=== PATIENT | female | born 2000 | race Caucasian/White ===

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

== ENCOUNTER 2021-05-11 14:25 | Inpatient (IN) | payer OTHER ==
[~2021-05-11] VITALS: Ht 165.1 cm; Wt 77.3 kg
[~2021-05-11 14:25] MED LIST changes: -ALBU8.5H INH; -AZIT-12 PO; -DEPO150I12 IM; -FREM225A INJ; -IBUP80TA PO; -PRED20TA PO
[2021-05-11] MEDS ORDERED: ALBU8.5H INH (14:36)
[2021-05-11] MEDS ORDERED: PRED20TA PO (14:36)
[2021-05-11] MEDS ORDERED: AZIT-12 PO (14:36)
[2021-05-11] MEDS ORDERED: DEPO150I12 IM (14:38)
[2021-05-11 15:07] LABS: BASO % 0.1 % (0.0-1.0); EOS # 0.1 10^3/uL (0.0-0.5); EOS % 0.4 % (0.0-3.0); HEMATOCRIT 39.3 % (36.0-47.0); HEMOGLOBIN 13.4 g/dl (12.0-15.5); LYMPH # 0.4 10^3/uL (1.5-5.0); MEAN CORPUSCULAR HEMOGLOBIN 29.8 pg (27.0-33.0); MEAN CORPUSCULAR HGB CONC 34.1 g/dl (32.0-36.5); MEAN CORPUSCULAR VOLUME 87.3 fl (80.0-96.0); MONO # 0.2 10^3/uL (0.0-0.8); MONO % 1.1 % (2.0-8.0); NEUTROPHILS # 13.5 10^3/uL (1.5-8.5); NEUTROPHILS % 94.6 % (36.0-66.0); PLATELET COUNT, AUTOMATED 286 10^3/uL (150-450); WHITE BLOOD COUNT 14.3 10^3/uL (4.0-10.0)
[2021-05-11] MEDS ORDERED: ISOVUE-370 76% 100ML VIAL As Ordered ONE (19:04)
[2021-05-11] MEDS ORDERED: NS 1,000 ML IV ONE (19:05)
--- NOTE | 2021-05-11 20:06 | REPVR ---
PROCEDURE INFORMATION: Exam: CTA Chest With Contrast Exam date and time: 05/11/2021 7:09 PM Age: 20 years old Clinical indication: Other: SOB RO pe TECHNIQUE: Imaging protocol: Computed tomographic angiography of the chest with contrast. 3D rendering (Not supervised by radiologist): MIP and/or 3D reconstructed images were created by the technologist. Radiation optimization: All CT scans at this facility use at least one of these dose optimization techniques: automated exposure control; mA and/or kV adjustment per patient size (includes targeted exams where dose is matched to clinical indication); or iterative reconstruction. Contrast material: ISOVUE 370; Contrast volume: 75 ml; Contrast route: INTRAVENOUS (IV); COMPARISON: IL Chest, 2 view PA, Lat 05/11/2021 11:58 AM FINDINGS: Pulmonary arteries: There are no pulmonary emboli. Aorta: There is no aortic dissection or aneurysm. Lungs: Multiple bilateral ground-glass and semi solid pulmonary parenchymal opacities most consistent with bilateral moderate to severe multifocal pneumonitis. Pleural spaces: Unremarkable. No pneumothorax. No pleural effusion. Heart: Unremarkable. No cardiomegaly. No pericardial effusion. Lymph nodes: Diffuse mediastinal lymphadenopathy likely postinflammatory. Bones/joints: Unremarkable. No acute fracture. Soft tissues: Unremarkable. IMPRESSION: 1. Multiple bilateral ground-glass and semi solid pulmonary parenchymal opacities most consistent with bilateral moderate to severe multifocal pneumonitis. 2. There is no aortic dissection or aneurysm. 3. Diffuse mediastinal lymphadenopathy likely postinflammatory. 4. There are no pulmonary emboli. Electronically signed by: Александр Whiting On 05/11/2021 20:05:43 PM
[2021-05-11 20:41] VITALS: O2SAT 91
[2021-05-11] MEDS ORDERED: cefTRIAXone SOD 2 GM in D5W MINI-BAG PLUS 50 ML IV ONE (20:45)
[2021-05-11] MEDS ORDERED: FREM225A INJ (20:47)
[2021-05-11] MEDS ORDERED: IBUP80TA PO (20:47)
[2021-05-11 20:51] LABS: BLOOD UREA NITROGEN 6 MG/DL (7-18); CALCIUM LEVEL 8.5 MG/DL (8.5-10.1); CARBON DIOXIDE LEVEL 21 MEQ/L (21-32); CHLORIDE LEVEL 110 MEQ/L (98-107); CREATININE FOR GFR 0.48 MG/DL (0.55-1.30); GLUCOSE, FASTING 112 MG/DL (70-100); POTASSIUM SERUM 3.1 MEQ/L (3.5-5.1); SODIUM LEVEL 141 MEQ/L (136-145)
[2021-05-11] MEDS ORDERED: POTASSIUM CHLORIDE 10 MEQ SR TABLET PO ONE (21:00)
[2021-05-11] MEDS ORDERED: LEVALBUTEROL 1.25 MG/0.5 ML CONCENTRATE NEB INH PRN (21:05)
--- NOTE | 2021-05-11 21:13 | HPEPDOC ---
[facility] Medical History & Physical Date of Admission May 11, 2021 Date of Service: May 11, 2021 History and Physical Hospitalist Attending Physician Addendum to H&P: a/p: 20 y/o F w c/o sob, cough found to have B/L infiltrates on CT chest, negative coronavirus-19 on respiratory panel, white count 14, tachycardic 122, hypoxic admitted as an inpatient for 2midnights for the following acute issues: Sepsis Bilateral Community Acquired Pneumonia -monitor w serial inflammatory markers, and recheck coronavirus if high suspic ion despite negative respiratory panel on admission -7days abx: start with iv ceftriaxone 2grams daily and iv doxycycline -check sputum c&s, mrsa screen, urine legionella and strep pneumonia ag, 2 sets blood cultures -prn xopenex neb q1hr, qid scheduled nebs -supplemental oxygen to keep o2 sat>90% Acute hypoxic respiratory failure due to pneumonia Vital Signs Vital Signs Date Time Temp Pulse Resp B/P (MAP) Pulse Ox O2 Delivery O2 Flow Rate FiO2 05/11/21 20:41 91 Room Air 05/11/21 19:21 05/11/21 14:26 98.3 122 18 Laboratory Data Labs 24H Laboratory Tests 2 05/11/21 14:41: Immature Granulocyte % (Auto) 0.8, Neutrophils (%) (Auto) 94.6H, Lymphocytes (%) (Auto) 3.0L, Monocytes (%) (Auto) 1.1L, Eosinophils (%) (Auto) 0.4, Basophils (%) (Auto) 0.1, Neutrophils # (Auto) 13.5H, Lymphocytes # (Auto) 0.4L, Monocytes # (Auto) 0.2, Eosinophils # (Auto) 0.1, Basophils # (Auto) 0.0, Nucleated Red Blood Cells % (auto) 0.0, Human Chorionic Gonadotropin, Quant < 1.0 05/11/21 18:15: D-Dimer, Quantitative 1134.10H 05/11/21 18:58: POC Glucose (Misc Panel) 115H, POC Sodium (Misc Panel) 139, POC Potassium (Misc Panel) 3.0L, POC Chloride (Misc Panel) 102, POC Total CO2 (Misc Panel) 21.0L, POC Blood Urea Nitrogen (Misc Panel 6L, POC Ionized Calcium (Misc Panel) 4.4L, POC Creatinine (Misc Panel) 0.3L, POC Hematocrit (Misc Panel) 39.0 05/11/21 20:19: Anion Gap 10, Calcium Level 8.5 CBC/BMP Laboratory Tests 05/11/21 14:41 05/11/21 20:19 Microbiology Microbiology 05/11/21 Respiratory Virus Panel (PCR) (CEDRICK) - Final, Complete Home Medications Scheduled Azithromycin (Azithromycin) 250 Mg Tablet, 250 MG PO DAILY STARTED 05/11/21 FOR 5 DAYS Fremanezumab-Vfrm (Ajovy Autoinjector) 225 Mg/1.5 Ml Auto.injct, 225 MG INJ QMONTH Ibuprofen (Ibuprofen) 800 Mg Tablet, 800 MG PO TID Medroxyprogesterone Acetate (Depo-Provera) 150 Mg/1 Ml Syringe, 150 MG IM Q3M Prednisone (Prednisone) 20 Mg Tablet, 20 MG PO DAILY STARTED 05/11/21 FOR 3 DAYS Scheduled PRN Albuterol Sulfate (Albuterol Sulfate Hfa) 8.5 Gm Hfa.aer.ad, 2 PUFFS INH QID PRN for SHORTNESS OF BREATH Allergies Coded Allergies: azithromycin (Verified Allergy, Mild, HIVES, 05/11/21) A-FIB/CHADSVASC A-FIB History Current/History of A-Fib/PAF?: No Current PO Anticoag Therapy: No Age/Risk Factor Scoring CHADSVASC: CHADSVASC Response (Comments) Value Age Risk Factor Age < 65 years old 0 Gender Risk Factor Female 1 Hx of CHF No 0 Hx of HTN No 0 Hx of Stroke/TIA/or VTE No 0 Hx of Diabetes No 0 Hx of Vascular Disease No 0 Total 1 Treatment Treatment ordered: NONE SEDRICK BRADFORD MD May 11, 2021 21:13
[2021-05-11] MEDS ORDERED: ACETAMINOPHEN TAB 650MG DOSE (2X325MG) PO PRN (21:15)
[2021-05-11] MEDS ORDERED: ONDANSETRON 4MG/2ML VIAL IV PRN (21:15)
[2021-05-11] MEDS ORDERED: ENOXAPARIN 40MG/0.4ML SYRINGE (J1650 PER 10MG) SC ONE (21:15)
--- NOTE | 2021-05-11 22:34 | HPEPDOC ---
[facility] Medical History & Physical Date of Admission May 11, 2021 Date of Service: May 11, 2021 History and Physical CHIEF COMPLAINT: Fever cough shortness of breath HISTORY OF PRESENT ILLNESS: 20-year-old female presented to the emergency room due to complaints of fever 103 since Monday on and off seen at [facility] urgent care and diagnosed with sinus infection and ear infection given azithromycin. Patient had persistent cough which is dry nonproductive without nausea vomiting diarrhea abdominal pain but complained of headache and presents with shortness of breath for the past 1 day prompting her to come into the ER. Patient was taking Tylenol twice a day with no improvement in symptoms she was exposed to her mom who also was treated for sinus infection for the past 2 weeks and started having a cough. Jerri navirus was negative. White count was 14 with tachycardia sinus rhythm ventricle rate of 122. 91% on room air. Patient is admitted for sepsis secondary to bilateral community-acquired pneumonia . PAST MEDICAL HISTORY: Otitis media PAST SURGICAL HISTORY: None SOCIAL HISTORY: Works at [employer] denies any recreational drug use alcohol abuse or cigarette abuse FAMILY HISTORY: Mother father alive and well in their 40s no chronic medical problems ALLERGIES: Please see below. REVIEW OF SYSTEMS: 10 point review of systems negative aside from positive findings in HPI HOME MEDICATIONS: Please see below. PHYSICAL EXAMINATION: VITAL SIGNS: See below GENERAL APPEARANCE: No conversational dyspnea no pallor icterus jaundice no respiratory distress or use of respiratory accessory muscles HEENT: Face is symmetric tongue is midline pupils equally round reactive to lig ht accommodation extra muscles are intact normocephalic atraumatic no cervical lymphadenopathy thyromegaly or pharyngeal erythema no stridor in exam no carotid bruit CARDIOVASCULAR: S1-S2 sinus tachycardia no murmurs rubs or gallops LUNGS: No kyphoscoliosis air entry is equal bilaterally bilateral crackles no wheezing ABDOMEN: Positive bowel sounds soft nontender nondistended no rebound or guardin g EXTREMITIES: No cyanosis clubbing or pitting edema. LABORATORY DATA: See below. IMAGING: CT chest bilateral groundglass infiltrates severe pneumonitis MICROBIOLOGY: Please see below. ASSESSMENT: 20-year-old female presents with fever shortness of breath dry cough found to have bilateral groundglass opacities on CT chest admitted for community-acquired pneumonia. Sepsis secondary to bilateral community-acquired pneumonia -Patient will be admitted as an inpatient for 2 midnights and treated with IV ceftriaxone 2 g every 24 hours, doxycycline 100 mg IV every 12 hours, nebulizer Xopenex 4 times daily routine and nightly hourly as needed for wheezing and shortness of breath supplemental oxygen if needed for O2 sat less than 88% to keep saturation at greater than 90% at rest and with ambulation -Check sputum culture 2 sets of blood cultures check for urine Legionella antigen urine streptococcal antigen check for MRSA screen -Monitor inflammatory markers Diet regular diet DVT prophylaxis Lovenox 40 mg subcu daily CODE STATUS full code Disposition: 1 to 2 days depending on clinical improvement. Vital Signs Vital Signs Date Time Temp Pulse Resp B/P (MAP) Pulse Ox O2 Delivery O2 Flow Rate FiO2 05/11/21 21:32 95 18 133/75 (94) 97 05/11/21 20:41 Room Air 05/11/21 14:26 98.3 Laboratory Data Labs 24H Laboratory Tests 2 05/11/21 14:41: Immature Granulocyte % (Auto) 0.8, Neutrophils (%) (Auto) 94.6H, Lymphocytes (%) (Auto) 3.0L, Monocytes (%) (Auto) 1.1L, Eosinophils (%) (Auto) 0.4, Basophils (%) (Auto) 0.1, Neutrophils # (Auto) 13.5H, Lymphocytes # (Auto) 0.4L, Monocytes # (Auto) 0.2, Eosinophils # (Auto) 0.1, Basophils # (Auto) 0.0, Nucleated Red Blood Cells % (auto) 0.0, Human Chorionic Gonadotropin, Quant < 1.0 05/11/21 18:15: D-Dimer, Quantitative 1134.10H 05/11/21 18:58: POC Glucose (Misc Panel) 115H, POC Sodium (Misc Panel) 139, POC Potassium (Misc Panel) 3.0L, POC Chloride (Misc Panel) 102, POC Total CO2 (Misc Panel) 21.0L, POC Blood Urea Nitrogen (Misc Panel 6L, POC Ionized Calcium (Misc Panel) 4.4L, POC Creatinine (Misc Panel) 0.3L, POC Hematocrit (Misc Panel) 39.0 05/11/21 20:19: Anion Gap 10, Calcium Level 8.5 CBC/BMP Laboratory Tests 05/11/21 14:41 05/11/21 20:19 Microbiology Microbiology 05/11/21 Respiratory Virus Panel (PCR) (CEDRICK) - Final, Complete Home Medications Scheduled Azithromycin (Azithromycin) 250 Mg Tablet, 250 MG PO DAILY STARTED 05/11/21 FOR 5 DAYS Fremanezumab-Vfrm (Ajovy Autoinjector) 225 Mg/1.5 Ml Auto.injct, 225 MG INJ QMONTH Ibuprofen (Ibuprofen) 800 Mg Tablet, 800 MG PO TID Medroxyprogesterone Acetate (Depo-Provera) 150 Mg/1 Ml Syringe, 150 MG IM Q3M Prednisone (Prednisone) 20 Mg Tablet, 20 MG PO DAILY STARTED 05/11/21 FOR 3 DAYS Scheduled PRN Albuterol Sulfate (Albuterol Sulfate Hfa) 8.5 Gm Hfa.aer.ad, 2 PUFFS INH QID PRN for SHORTNESS OF BREATH Allergies Coded Allergies: azithromycin (Verified Allergy, Mild, HIVES, 05/11/21) A-FIB/CHADSVASC A-FIB History Current/History of A-Fib/PAF?: No Current PO Anticoag Therapy: No Age/Risk Factor Scoring CHADSVASC: CHADSVASC Response (Comments) Value Age Risk Factor Age < 65 years old 0 Gender Risk Factor Female 1 Hx of CHF No 0 Hx of HTN No 0 Hx of Stroke/TIA/or VTE No 0 Hx of Diabetes No 0 Hx of Vascular Disease No 0 Total 1 Treatment Treatment ordered: NONE SEDRICK BRADFORD MD May 11, 2021 22:34
[2021-05-11 23:00] LABS: INR 1.23; PARTIAL THROMBOPLASTIN TIME 34.3 SECONDS (24.2-38.5); PROTHROMBIN TIME 15.8 SECONDS (12.5-14.3)
[2021-05-12 00:01] LABS: ALBUMIN 3.1 GM/DL (3.2-5.2); ALT/SGPT 18 U/L (12-78); BILIRUBIN,DIRECT 0.2 MG/DL (0.0-0.2); BILIRUBIN,TOTAL 0.4 MG/DL (0.2-1.0); CK-MB VALUE MASS < 1.0 NG/ML (<3.6); CPK CREATINE PHOSPHOKINASE 77 U/L (26-192); FERRITIN 301 NG/ML (8-252); LDH LACTATE DEHYDROGENASE 486 U/L (84-246); MAGNESIUM LEVEL 2.4 MG/DL (1.8-2.4); TOTAL PROTEIN 6.6 GM/DL (6.4-8.2); TROPONIN I < 0.02 NG/ML (< 0.10)
[2021-05-12 00:30] VITALS: BP 143/85
[2021-05-12] MEDS: DOXYCYCLINE HYCLATE 100 MG in D5W MINI-BAG PLUS 100 ML IV SCH ×3 (00:46→20:36)
[2021-05-12] MEDS ORDERED: BENZONATATE 100 MG CAP PO PRN (01:30)
--- NOTE | 2021-05-12 05:27 | ECGEPIP ---
[facility] - ED Test Date: 2021-05-11 Pat Name: TRINA FAIRCHILD Department: Room: - Gender: Female Cable Technician: : 2000 Requested By: JON Cardenas PA-C Order Number: [id number] Reading MD: Jhon Chang Measurements Intervals [place] Rate: 83 P: 25 [place]: 144 QRS: 71 QRSD: 84 T: 43 QT: 362 QTc: 425 Interpretive Statements Normal sinus rhythm SIMILAR TO 07/02/19 Electronically Signed on 05-12-2021 5:26:56 EDT by Jhon Chang
[2021-05-12 06:00] VITALS: BP 135/81
[2021-05-12 06:57] LABS: BASO % 0.1 % (0.0-1.0); EOS # 0.1 10^3/uL (0.0-0.5); EOS % 0.7 % (0.0-3.0); HEMATOCRIT 33.6 % (36.0-47.0); LYMPH # 1.7 10^3/uL (1.5-5.0); LYMPH % 11.7 % (24.0-44.0); MEAN CORPUSCULAR HEMOGLOBIN 29.8 pg (27.0-33.0); MEAN CORPUSCULAR HGB CONC 33.9 g/dl (32.0-36.5); MEAN CORPUSCULAR VOLUME 87.7 fl (80.0-96.0); MONO # 0.4 10^3/uL (0.0-0.8); MONO % 3.1 % (2.0-8.0); NEUTROPHILS # 11.9 10^3/uL (1.5-8.5); NEUTROPHILS % 83.8 % (36.0-66.0); PLATELET COUNT, AUTOMATED 289 10^3/uL (150-450); RED BLOOD COUNT 3.83 10^6/uL (4.00-5.40); WHITE BLOOD COUNT 14.2 10^3/uL (4.0-10.0)
[2021-05-12 06:58] LABS: HEMOGLOBIN 11.4 g/dl (12.0-15.5)
[2021-05-12] MEDS: LEVALBUTEROL 1.25 MG/0.5 ML CONCENTRATE NEB INH SCH ×4 (07:04→19:11)
[2021-05-12 07:06] LABS: BLOOD UREA NITROGEN 6 MG/DL (7-18); CALCIUM LEVEL 8.6 MG/DL (8.5-10.1); CARBON DIOXIDE LEVEL 23 MEQ/L (21-32); CHLORIDE LEVEL 108 MEQ/L (98-107); CREATININE FOR GFR 0.41 MG/DL (0.55-1.30); GLUCOSE, FASTING 94 MG/DL (70-100); POTASSIUM SERUM 3.2 MEQ/L (3.5-5.1); SODIUM LEVEL 141 MEQ/L (136-145)
[2021-05-12] MEDS: ENOXAPARIN 40MG/0.4ML SYRINGE (J1650 PER 10MG) SC SCH (09:00)
[2021-05-12] MEDS ORDERED: POTASSIUM CHLORIDE 10 MEQ SR TABLET PO ONE (10:30)
[2021-05-12 14:00] VITALS: BP 142/87
--- NOTE | 2021-05-12 19:22 | IPNPDOC ---
Text Note Date of Service The patient was seen on 05/12/21. NOTE Subjective: -No acute events overnight Objective: Vitals: see below GENERAL APPEARANCE: NAD HEENT: NCAT, EOMI, PERRLA, anicteric, MMM CARDIOVASCULAR: Regular rhythm, tachycardic, no murmurs LUNGS: No crackles, moving air well, no wheezing, breathing comfortably otherwise without conversation dyspnea ABDOMEN: Normoactive bowel sounds soft nontender nondistended no rebound or guarding EXTREMITIES: No cyanosis clubbing or pitting edema. LABORATORY DATA: Reviewed IMAGING: CT chest bilateral groundglass infiltrates severe pneumonitis MICROBIOLOGY: Please see below. ASSESSMENT: 20-year-old W who presented with fever, shortness of breath and dry cough found to have bilateral ground glass opacities on CT chest admitted for community-acquired pneumonia. Sepsis secondary to bilateral community-acquired pneumonia -Continue ceftriaxone 2 g every 24 hours, doxycycline 100 mg IV every 12 hours -continue Xopenex PRN for wheezing and shortness of breath -supplemental oxygen if needed for O2 sat less than 88% to keep saturation at greater than 90% at rest and with ambulation -f/u sputum culture, blood cultures, urine Legionella antigen, urine streptococcal antigen, mycoplasma IgM -was negative for covid x 2 Diet regular diet DVT prophylaxis Lovenox 40 mg subcutaneous daily CODE STATUS full code VS,Fishbone, I+O VS, Fishbone, I+O Laboratory Tests 05/11/21 14:41 05/11/21 20:19 05/12/21 06:19 Vital Signs Date Time Temp Pulse Resp B/P (MAP) Pulse Ox O2 Delivery O2 Flow Rate FiO2 05/12/21 06:00 99.2 111 21 135/81 (99) 94 Room Air I&O- Last 24 Hours up to 6 AM 05/12/21 06:00 Intake Total 1350 ml Balance 1350 ml STELLA LEVY MD May 12, 2021 10:27
[2021-05-12 20:34] VITALS: BP 107/75
[2021-05-13 06:00] VITALS: BP 108/75
[2021-05-13] MEDS: LEVALBUTEROL 1.25 MG/0.5 ML CONCENTRATE NEB INH SCH ×2 (06:06→10:58)
[2021-05-13 07:38] LABS: BASO % 0.3 % (0.0-1.0); EOS # 0.3 10^3/uL (0.0-0.5); EOS % 3.5 % (0.0-3.0); HEMATOCRIT 33.5 % (36.0-47.0); HEMOGLOBIN 11.3 g/dl (12.0-15.5); LYMPH # 1.9 10^3/uL (1.5-5.0); LYMPH % 19.6 % (24.0-44.0); MEAN CORPUSCULAR HEMOGLOBIN 29.6 pg (27.0-33.0); MEAN CORPUSCULAR HGB CONC 33.7 g/dl (32.0-36.5); MEAN CORPUSCULAR VOLUME 87.7 fl (80.0-96.0); MONO # 0.4 10^3/uL (0.0-0.8); MONO % 4.3 % (2.0-8.0); NEUTROPHILS # 6.9 10^3/uL (1.5-8.5); NEUTROPHILS % 71.4 % (36.0-66.0); PLATELET COUNT, AUTOMATED 273 10^3/uL (150-450); RED BLOOD COUNT 3.82 10^6/uL (4.00-5.40); WHITE BLOOD COUNT 9.7 10^3/uL (4.0-10.0)
[2021-05-13 08:12] LABS: BLOOD UREA NITROGEN 7 MG/DL (7-18); CALCIUM LEVEL 8.6 MG/DL (8.5-10.1); CARBON DIOXIDE LEVEL 26 MEQ/L (21-32); CHLORIDE LEVEL 107 MEQ/L (98-107); CREATININE FOR GFR 0.38 MG/DL (0.55-1.30); GLUCOSE, FASTING 87 MG/DL (70-100); POTASSIUM SERUM 3.7 MEQ/L (3.5-5.1); SODIUM LEVEL 142 MEQ/L (136-145)
[2021-05-13] MEDS ORDERED: DOXYCYCLINE HYCLATE 100MG TABLET PO SCH (09:00)
[2021-05-13] MEDS: ENOXAPARIN 40MG/0.4ML SYRINGE (J1650 PER 10MG) SC SCH (09:00)
[2021-05-13] MEDS ORDERED: CEFDINIR 300 MG CAP (OMNICEF) PO SCH (09:00)
[2021-05-13] MEDS ORDERED: DOXY100T PO (12:00)
[2021-05-13] MEDS ORDERED: BENZ-18 PO (12:00)
[2021-05-13] MEDS ORDERED: CEFD300CAP PO (12:00)
--- NOTE | 2021-05-13 12:12 | DS.PDOC ---
Discharge Summary General Date of Admission May 11, 2021 at 14:26 Date of Discharge 05/13/2021 Attending Physician: STELLA LEVY MD Discharge Summary PROCEDURES PERFORMED DURING STAY: None ADMITTING DIAGNOSES: CAP DISCHARGE DIAGNOSES: CAP COMPLICATIONS/CHIEF COMPLAINT: Bilateral Pneumonia. HISTORY OF PRESENT ILLNESS: 20-year-old previously healthy W who presented to the emergency room due to complaints of episodic fever with Tmax of 103for a few days and was seen at urgent care clinic and diagnosed with sinus infection and ear infection and given azithromycin that did not help and instead developed a dry cough, headache and then presented with ED after developing shortness of breath for 1 day. Of note, she had tested negative for covid at the urgent care clinic. HOSPITAL COURSE: She was HDS, febrile, covid-19 was negative, while count was 14 with sinus t achycardia, elevated inflammatory markers and CTA showed bilateral GGOs without evidence of PE. She was admitted for CAP and started on ceftriaxone/doxy IV. Her fever resolved, symptoms improved and urine legionella and strep antigens sent. She feels so much better and has not been transitioned to PO cefdinir/doxy for a total 10 day course and is now being discharged home with close PCP follow up for most likely legionnaire's PNA. DISCHARGE MEDICATIONS: Please see below. ALLERGIES: Please see below. PHYSICAL EXAMINATION ON DISCHARGE: VITAL SIGNS: Please see below. GENERAL APPEARANCE: NAD HEENT: NCAT, EOMI, PERRLA, anicteric, MMM CARDIOVASCULAR: Regular rhythm, tachycardic, no murmurs LUNGS: No crackles, moving air well, no wheezing, breathing comfortably otherwise without conversation dyspnea ABDOMEN: Normoactive bowel sounds soft nontender nondistended no rebound or guarding EXTREMITIES: No cyanosis clubbing or pitting edema. LABORATORY DATA: Please see below. IMAGING: CTA chest: Chest bilateral ground glass infiltrates c/w severe pneumonitis vs. PNA PROGNOSIS: Excelllent ACTIVITY: As tolerated DIET: regular DISCHARGE PLAN: Home with 8 more day for total 10d course with cefdinir/doxy and close PCP follow up. DISPOSITION: Home DISCHARGE INSTRUCTIONS: Home with 8 more day for total 10d course with cefdinir/doxy and close PCP follow up. ITEMS TO FOLLOWUP ON ON OUTPATIENT: CAP DISCHARGE CONDITION: Stable TIME SPENT ON DISCHARGE: 34 minutes. Vital Signs/I&Os Vital Signs Date Time Temp Pulse Resp B/P (MAP) Pulse Ox O2 Delivery O2 Flow Rate FiO2 05/13/21 06:00 99.0 97 21 108/75 (86) 96 Room Air I&O- Last 24 Hours up to 6 AM 05/13/21 06:00 Intake Total 440 ml Balance 440 ml Laboratory Data Labs 24H Laboratory Tests 2 05/13/21 07:28: Immature Granulocyte % (Auto) 0.9, Neutrophils (%) (Auto) 71.4H, Lymphocytes (%) (Auto) 19.6L, Monocytes (%) (Auto) 4.3, Eosinophils (%) (Auto) 3.5H, Basophils (%) (Auto) 0.3, Neutrophils # (Auto) 6.9, Lymphocytes # (Auto) 1.9, Monocytes # (Auto) 0.4, Eosinophils # (Auto) 0.3, Basophils # (Auto) 0.0, Nucleated Red Blood Cells % (auto) 0.0, Anion Gap 9, Calcium Level 8.6 CBC/BMP Laboratory Tests 05/13/21 07:28 Microbiology Microbiology 05/11/21 Blood Culture - Preliminary, Resulted No growth after 24 hours . All specim... 05/11/21 Blood Culture - Preliminary, Resulted No growth after 24 hours . All specim... 05/11/21 Respiratory Virus Panel (PCR) ([facility]) - Final, Complete Discharge Medications Scheduled Azithromycin (Azithromycin) 250 Mg Tablet, 250 MG PO DAILY, (Reported) STARTED 05/11/21 FOR 5 DAYS Cefdinir (Cefdinir) 300 Mg Capsule, 300 MG PO BID Doxycycline Hyclate (Doxycycline Hyclate) 100 Mg Tablet, 100 MG PO BID Fremanezumab-Vfrm (Ajovy Autoinjector) 225 Mg/1.5 Ml Auto.injct, 225 MG INJ QMONTH, (Reported) Ibuprofen (Ibuprofen) 800 Mg Tablet, 800 MG PO TID, (Reported) Medroxyprogesterone Acetate (Depo-Provera) 150 Mg/1 Ml Syringe, 150 MG IM Q3M, (Reported) Scheduled PRN Albuterol Sulfate (Albuterol Sulfate Hfa) 8.5 Gm Hfa.aer.ad, 2 PUFFS INH QID PRN for SHORTNESS OF BREATH, (Reported) Benzonatate (Benzonatate) 100 Mg Capsule, 100 MG PO TIDP PRN for COUGH Allergies Coded Allergies: azithromycin (Verified Allergy, Mild, HIVES, 05/11/21) STELLA LEVY MD May 13, 2021 12:12
[2021-05-14 15:40] LABS: BODY FLUID CULTURE Not indicated. (.); LEGIONELLA ANTIGEN URINE Negative (Negative); ORGANISM ID Not indicated. (.); SPECIMEN SOURCE Urine (.); URINE STREP PNEUMONIAE ANTIGEN Negative (Negative)
== END 2021-05-13 13:10 | disposition home or self-care (01) | DRG 195 ==
LOC: M ED 14:25 → M ED INP 14:26 → M MS5PR 05-12 00:40
PROVIDERS: ADMIT General Practice; ATTEND Internal Medicine
DX: J18.9 Pneumonia, unspecified organism (principal); Z88.1 Allergy status to other antibiotic agents; Z79.899 Other long term (current) drug therapy; Z20.822 Contact with and (suspected) exposure to COVID-19

== ENCOUNTER → 2021-05-11 | Outpatient (CLI) | payer OTHER ==
[~2021-05-11] MED LIST changes: +ALBU8.5H INH; +AZIT-12 PO; +DEPO150I12 IM; -DICY20TA PO; +DICY20TA3 PO; +FREM225A INJ; +IBUP80TA PO; +PRED20TA PO
--- NOTE | 2021-05-11 12:11 | REP ---
INDICATION: SOB COMPARISON: 07/02/2019. TECHNIQUE: PA/Lateral FINDINGS: Lungs: There are bibasilar interstitial infiltrates predominantly in the right middle lobe and lingula. Heart: Normal in size. Mediastinum: Mediastinal silhouette unremarkable. Pleural angles: Unremarkable.. Bones and soft tissues: Unremarkable. IMPRESSION: Bibasilar interstitial infiltrates predominantly in the right middle lobe and lingula. <Electronically signed by Malcolm Stevenson > 05/11/21 1206
== END ==
LOC: M RAD 11:44
PROVIDERS: ATTEND Physician Assistant Medical
DX: R06.02 Shortness of breath (principal); R05 Cough

== ENCOUNTER → 2021-05-26 | Outpatient (CLI) | payer OTHER ==
[~2021-05-26] MED LIST changes: +ALBU8.5H INH; +AZIT-12 PO; +BENZ-18 PO; +CEFD300CAP PO; +DEPO150I12 IM; +DOXY100T PO; +FREM225A INJ; +IBUP80TA PO; +PRED20TA PO
--- NOTE | 2021-05-26 14:15 | REP ---
INDICATION: PNEUMONIA F/U. COMPARISON: 05/11/2021 FINDINGS: The superior mediastinal structures are midline. The cardiac silhouette is unremarkable in size, shape, and position. The diaphragmatic surfaces of the lungs are regular, and the costophrenic angles are clear. The pulmonary lozoya are clear. The imaged osseous structures are intact. IMPRESSION: There is no acute cardiopulmonary disease. <Electronically signed by Yair Glover > 05/26/21 [id number]
== END ==
LOC: M WUC 11:33
PROVIDERS: ATTEND Physician Assistant Medical
DX: J18.9 Pneumonia, unspecified organism (principal)

== ENCOUNTER → 2021-07-05 | Outpatient (CLI) | payer OTHER ==
--- NOTE | 2021-07-05 14:12 | REP ---
INDICATION: RECENT PNEUMONIA COMPARISON: 05/26/2021. TECHNIQUE: PA/Lateral FINDINGS: Lungs: Clear, no infiltrate. Heart: Normal in size. Mediastinum: Mediastinal silhouette unremarkable. Pleural angles: Unremarkable.. Bones and soft tissues: Unremarkable. IMPRESSION: No acute pulmonary disease. <Electronically signed by Malcolm Stevenson > 07/05/21 [id number]
== END ==
LOC: M RAD 13:53
PROVIDERS: ATTEND Physician Assistant
DX: R05 Cough (principal)

== ENCOUNTER → 2021-08-12 | Outpatient (REF) | payer OTHER | LOC: M LAB REF 21:18 | PROVIDERS: ATTEND Physician Assistant | DX: R05.9 Cough, unspecified (principal) ==

== ENCOUNTER → 2021-08-27 | Outpatient (CLI) | payer OTHER ==
[2021-08-27 14:35] LABS: BASO # 0.1 10^3/uL (0.0-0.2); BASO % 0.6 % (0.0-1.0); EOS # 0.3 10^3/uL (0.0-0.5); EOS % 2.4 % (0.0-3.0); HEMATOCRIT 40.9 % (36.0-47.0); HEMOGLOBIN 13.6 g/dl (12.0-15.5); LYMPH # 1.9 10^3/uL (1.5-5.0); LYMPH % 18.5 % (24.0-44.0); MEAN CORPUSCULAR HEMOGLOBIN 29.8 pg (27.0-33.0); MEAN CORPUSCULAR HGB CONC 33.3 g/dl (32.0-36.5); MEAN CORPUSCULAR VOLUME 89.5 fl (80.0-96.0); MONO # 0.7 10^3/uL (0.0-0.8); MONO % 6.5 % (2.0-8.0); NEUTROPHILS # 7.4 10^3/uL (1.5-8.5); NEUTROPHILS % 71.6 % (36.0-66.0); PLATELET COUNT, AUTOMATED 254 10^3/uL (150-450); RED BLOOD COUNT 4.57 10^6/uL (4.00-5.40); WHITE BLOOD COUNT 10.4 10^3/uL (4.0-10.0)
[2021-08-27 15:16] LABS: ALBUMIN 4.3 GM/DL (3.2-5.2); ALT/SGPT 18 U/L (12-78); BILIRUBIN,TOTAL 0.5 MG/DL (0.2-1.0); BLOOD UREA NITROGEN 14 MG/DL (7-18); CALCIUM LEVEL 9.5 MG/DL (8.5-10.1); CARBON DIOXIDE LEVEL 26 MEQ/L (21-32); CHLORIDE LEVEL 109 MEQ/L (98-107); CREATININE FOR GFR 0.65 MG/DL (0.55-1.30); FERRITIN 84 NG/ML (8-252); FREE T4 1.09 NG/DL (0.76-1.46); GLOMERULAR FILTRATION RATE > 60.0 (>60); GLUCOSE, FASTING 95 MG/DL (70-100); IRON (FE) 91 UG/DL (50-170); PERCENT SATURATION 31.7 % (13.2-45.0); POTASSIUM SERUM 3.3 MEQ/L (3.5-5.1); RHEUMATOID FACTOR QUANT < 10.0 IU/ML (<15.0); SODIUM LEVEL 143 MEQ/L (136-145); TOTAL IRON BINDING CAPACITY 287 UG/DL (250-450); TOTAL PROTEIN 7.1 GM/DL (6.4-8.2)
[2021-08-27 15:19] LABS: VITAMIN B12 LEVEL 328 PG/ML
[2021-08-27 15:20] LABS: FOLATE 9.6 NG/ML
[2021-08-27 15:23] LABS: ERYTHROCYTE SEDIMENTATION RATE 2 mm/hr (0-20)
== END ==
LOC: M PLALAB 12:32
PROVIDERS: ATTEND Psychiatry & Neurology Neurology
DX: R51.9 Headache, unspecified (principal); D50.9 Iron deficiency anemia, unspecified; E07.9 Disorder of thyroid, unspecified; D51.9 Vitamin B12 deficiency anemia, unspecified

== ENCOUNTER → 2021-09-21 | Outpatient (REF) | payer OTHER ==
[~2021-09-21] MED LIST changes: -DICY20TA11; +DICY20TA20
== END ==
LOC: M LAB REF 16:33
PROVIDERS: ATTEND Advanced Practice Midwife
DX: R30.0 Dysuria (principal)

== ENCOUNTER 2022-01-07 15:46 | Emergency (ER) | payer OTHER ==
[~2022-01-07] VITALS: Ht 165.1 cm; Wt 79.5 kg
[2022-01-07 15:48] VITALS: BP 133/80
[2022-01-07] MEDS ORDERED: BUTA-198 PO (16:13)
[2022-01-07] MEDS ORDERED: UBRO100T PO (16:13)
[2022-01-07] MEDS ORDERED: PRED20TA PO (16:13)
[2022-01-07] MEDS ORDERED: KETOROLAC 30 MG/ML 1ML VIAL IV ONE (17:25)
[2022-01-07 18:11] LABS: BASO # 0.1 10^3/uL (0.0-0.2); BASO % 0.8 % (0.0-1.0); HEMATOCRIT 39.8 % (36.0-47.0); HEMOGLOBIN 13.2 g/dl (12.0-15.5); LYMPH # 2.5 10^3/uL (1.5-5.0); LYMPH % 28.7 % (24.0-44.0); MEAN CORPUSCULAR HEMOGLOBIN 30.6 pg (27.0-33.0); MEAN CORPUSCULAR HGB CONC 33.2 g/dl (32.0-36.5); MEAN CORPUSCULAR VOLUME 92.1 fl (80.0-96.0); MONO # 0.5 10^3/uL (0.0-0.8); MONO % 5.1 % (2.0-8.0); NEUTROPHILS # 5.6 10^3/uL (1.5-8.5); NEUTROPHILS % 63.9 % (36.0-66.0); PLATELET COUNT, AUTOMATED 198 10^3/uL (150-450); RED BLOOD COUNT 4.32 10^6/uL (4.00-5.40); WHITE BLOOD COUNT 8.7 10^3/uL (4.0-10.0)
[2022-01-07] MEDS ORDERED: KETO10TAB PO (19:31)
== END 2022-01-07 19:51 | disposition home or self-care (01) ==
LOC: M ED 15:46
DX: N83.291 Other ovarian cyst, right side (principal); K58.9 Irritable bowel syndrome, unspecified; G43.909 Migraine, unspecified, not intractable, without status migrainosus; F17.200 Nicotine dependence, unspecified, uncomplicated; Z88.1 Allergy status to other antibiotic agents; Z79.899 Other long term (current) drug therapy
CPT/HCPCS: 76830; 76856; 80047; 81001; 84702; 85025; 93976; 96374; 99283; J1885

== ENCOUNTER → 2022-01-13 | Outpatient (REF) | payer OTHER ==
[~2022-01-13] MED LIST changes: +BUTA-198 PO; +KETO10TAB PO; +UBRO100T PO
== END ==
LOC: M LAB REF 11:46
PROVIDERS: ATTEND Obstetrics & Gynecology
DX: R10.2 Pelvic and perineal pain (principal)

== ENCOUNTER → 2022-01-13 | Outpatient (CLI) | payer OTHER | LOC: M WHC 10:15 | PROVIDERS: ATTEND Obstetrics & Gynecology | DX: N83.292 Other ovarian cyst, left side (principal); Z97.5 Presence of (intrauterine) contraceptive device ==

== ENCOUNTER → 2022-08-31 | Outpatient (CLI) | payer OTHER ==
[2022-08-31 16:16] LABS: C REACTIVE PROTEIN QUANTITATIV < 0.30 MG/DL (0.00-0.30); RHEUMATOID FACTOR QUANT < 10.0 IU/ML (<15.0); URIC ACID 4.5 MG/DL (2.6-6.0)
[2022-09-02 15:11] LABS: ANTINUCLEAR ANTIBODIES DIRECT Negative (Negative)
== END ==
LOC: M PLALAB 14:36
PROVIDERS: ATTEND Physician Assistant
DX: M25.462 Effusion, left knee (principal)

== ENCOUNTER → 2022-12-25 | Outpatient (CLI) | payer OTHER | LOC: M RAD 09:52 | PROVIDERS: ATTEND Physician Assistant Medical | DX: J20.9 Acute bronchitis, unspecified (principal) ==

== ENCOUNTER → 2023-01-20 | Outpatient (REF) | payer OTHER ==
[2023-01-20 18:04] LABS: IMMUNOGLOBULIN A 143.9 MG/DL (40-350); IMMUNOGLOBULIN M 113.6 MG/DL (50-300)
== END ==
LOC: M LAB REF 16:50
PROVIDERS: ATTEND Internal Medicine
DX: J06.9 Acute upper respiratory infection, unspecified (principal)

== ENCOUNTER → 2023-02-06 | Outpatient (CLI) | payer OTHER ==
[~2023-02-06] MED LIST changes: +METHACHOLINE KIT INH ONE
== END ==
LOC: M CARPUL 09:37
PROVIDERS: ATTEND Internal Medicine
DX: R06.2 Wheezing (principal)
CPT/HCPCS: 94070; J7674

== ENCOUNTER 2023-05-02 09:06 | Emergency (ER) | payer OTHER ==
[~2023-05-02] VITALS: Ht 165.1 cm; Wt 75.0 kg
[~2023-05-02 09:06] MED LIST changes: -METHACHOLINE KIT INH ONE
[2023-05-02 11:40] LABS: BASO # 0.1 10^3/uL (0.0-0.2); BASO % 0.4 % (0.0-1.0); EOS # 0.3 10^3/uL (0.0-0.5); EOS % 1.9 % (0.0-3.0); HEMATOCRIT 37.3 % (36.0-47.0); HEMOGLOBIN 12.6 g/dl (12.0-15.5); LYMPH # 2.5 10^3/uL (1.5-5.0); LYMPH % 15.1 % (24.0-44.0); MEAN CORPUSCULAR HEMOGLOBIN 31.2 pg (27.0-33.0); MEAN CORPUSCULAR HGB CONC 33.8 g/dl (32.0-36.5); MEAN CORPUSCULAR VOLUME 92.3 fl (80.0-96.0); MONO % 9.8 % (2.0-8.0); PLATELET COUNT, AUTOMATED 257 10^3/uL (150-450); RED BLOOD COUNT 4.04 10^6/uL (4.00-5.40); WHITE BLOOD COUNT 16.7 10^3/uL (4.0-10.0)
[2023-05-02 12:10] LABS: ALBUMIN 3.3 G/DL (3.2-5.2); BILIRUBIN,DIRECT 0.3 MG/DL (<0.4); BILIRUBIN,TOTAL 0.9 MG/DL (0.3-1.2); MONO # 1.6 10^3/uL (0.0-0.8); TOTAL PROTEIN 6.7 G/DL (5.7-8.2)
[2023-05-02] MEDS ORDERED: KETOROLAC 30 MG/ML 1ML VIAL IV ONE (12:25)
[2023-05-02] MEDS ORDERED: NS 1,000 ML IV ONE (12:25)
[2023-05-02] MEDS ORDERED: ISOVUE-300 61% 100ML VIAL As Ordered ONE (13:28)
[2023-05-02] MEDS ORDERED: PIPERACILLIN/TAZOBACTAM SOD 3.375 GM in D5W MINI-BAG PLUS 50 ML IV ONE (14:45)
[2023-05-02 16:20] VITALS: BP 119/69; TEMP 98.4; O2SAT 99
[2023-05-02] MEDS ORDERED: AMOX875T2 PO (16:36)
== END 2023-05-02 16:57 | disposition home or self-care (01) ==
LOC: M ED 09:06
DX: K52.9 Noninfective gastroenteritis and colitis, unspecified (principal); N83.291 Other ovarian cyst, right side; G43.909 Migraine, unspecified, not intractable, without status migrainosus; F17.200 Nicotine dependence, unspecified, uncomplicated; Z88.1 Allergy status to other antibiotic agents; Z79.2 Long term (current) use of antibiotics; Z79.52 Long term (current) use of systemic steroids; Z79.899 Other long term (current) drug therapy
CPT/HCPCS: 74177; 76830; 76856; 80047; 80076; 81001; 83605; 83690; 84702; 85025; 93976; 96361; 96365; 96375; 99284; J1885; J2543; Q9967

== ENCOUNTER → 2023-05-03 | Outpatient (REF) | payer OTHER ==
[~2023-05-03] MED LIST changes: +AMOX875T2 PO
== END ==
LOC: M LAB REF 11:05
PROVIDERS: ATTEND Physician Assistant Medical
DX: R19.7 Diarrhea, unspecified (principal)

== ENCOUNTER 2023-06-19 11:30 | Day surgery (SDC) | payer OTHER ==
[~2023-06-19] VITALS: Ht 165.1 cm; Wt 75.2 kg
[~2023-06-19 11:30] MED LIST changes: -MEDR150I10; +MEDR150I13; +NS 1,000 ML IV ONE; +SYMB16INH INH; +TRAM50TA2 PO
[2023-06-19] MEDS ORDERED: LIDOCAINE 2% 100MG/5ML SDV (FOR ANES.) As Ordered ONE (12:29)
[2023-06-19] MEDS ORDERED: propofoL 200 MG/20 ML VIAL As Ordered ONE ×2 (12:29→12:33)
[2023-06-19 12:48] VITALS: TEMP 97.9
[2023-06-19 13:02] VITALS: BP 111/74; O2SAT 99
== END 2023-06-19 13:09 | disposition home or self-care (01) ==
LOC: M OPP 11:30
PROVIDERS: ATTEND Internal Medicine Gastroenterology
DX: K58.9 Irritable bowel syndrome, unspecified (principal); R93.3 Abnormal findings on diagnostic imaging of other parts of digestive tract; F17.290 Nicotine dependence, other tobacco product, uncomplicated; Z79.51 Long term (current) use of inhaled steroids; Z79.899 Other long term (current) drug therapy; Z88.1 Allergy status to other antibiotic agents; Z88.2 Allergy status to sulfonamides; Z91.048 Other nonmedicinal substance allergy status

== ENCOUNTER 2023-07-10 15:04 | Emergency (ER) | payer OTHER ==
[~2023-07-10 15:04] MED LIST changes: -NS 1,000 ML IV ONE
[2023-07-10 15:34] VITALS: BP 128/71; TEMP 98.5; O2SAT 98
== END 2023-07-10 18:19 | disposition left against medical advice (07) ==
LOC: M ED 15:04
DX: Z53.21 Procedure and treatment not carried out due to patient leaving prior to being seen by health care provider (principal)

== ENCOUNTER → 2023-07-11 | Outpatient (CLI) | payer OTHER | LOC: M WHC 14:54 | PROVIDERS: ATTEND Obstetrics & Gynecology | DX: N83.201 Unspecified ovarian cyst, right side (principal) ==

== ENCOUNTER → 2023-10-11 | Outpatient (CLI) | payer OTHER ==
[~2023-10-11] MED LIST changes: +BOTO10VL IM; +FAMO20TA PO; +HYOS0.1258 PO; +LEXA1TAB PO; +MONT10TA97 PO; +XIFA550T PO
== END ==
LOC: M WHC 14:03
PROVIDERS: ATTEND Obstetrics & Gynecology
DX: R10.2 Pelvic and perineal pain (principal)

== ENCOUNTER 2023-10-27 12:50 | Day surgery (SDC) | payer OTHER ==
[~2023-10-27] VITALS: Ht 165.1 cm; Wt 79.9 kg
[~2023-10-27 12:50] MED LIST changes: +LR 1,000 ML IV SCH
[2023-10-27] MEDS ORDERED: LR 1,000 ML IV SCH ×3 (13:20→16:15)
[2023-10-27] MEDS ORDERED: propofoL 200 MG/20 ML VIAL As Ordered ONE (13:33)
[2023-10-27] MEDS ORDERED: LIDOCAINE 2% 100MG/5ML SDV (FOR ANES.) As Ordered ONE (13:33)
[2023-10-27] MEDS ORDERED: KETOROLAC 60MG 2ML VIAL As Ordered ONE (13:33)
[2023-10-27] MEDS ORDERED: ONDANSETRON 4MG 2ML VIAL As Ordered ONE (13:33)
[2023-10-27] MEDS ORDERED: ROCURONIUM BROMIDE 50MG/5ML VIAL As Ordered ONE (13:33)
[2023-10-27] MEDS ORDERED: SUGAMMADEX SODIUM 500 MG/5 ML VIAL (BRIDION) As Ordered ONE (13:33)
[2023-10-27 13:39] LABS: HEMATOCRIT 39.8 % (36.0-47.0); HEMOGLOBIN 13.4 g/dl (12.0-15.5); MEAN CORPUSCULAR HEMOGLOBIN 31.1 pg (27.0-33.0); MEAN CORPUSCULAR HGB CONC 33.7 g/dl (32.0-36.5); MEAN CORPUSCULAR VOLUME 92.3 fl (80.0-96.0); PLATELET COUNT, AUTOMATED 270 10^3/uL (150-450); RED BLOOD COUNT 4.31 10^6/uL (4.00-5.40); WHITE BLOOD COUNT 11.9 10^3/uL (4.0-10.0)
[2023-10-27] MEDS ORDERED: MIDAZOLAM INJ 2MG/2ML VIAL As Ordered ONE (13:39)
[2023-10-27] MEDS ORDERED: fentaNYL 100 MCG/2 ML INJECTION As Ordered ONE (13:40)
[2023-10-27] MEDS ORDERED: oxyCODONE 5MG TAB PO PRN (16:00)
[2023-10-27] MEDS ORDERED: fentaNYL 100 MCG/2 ML INJECTION IV PRN (16:00)
[2023-10-27] MEDS ORDERED: ONDANSETRON 4MG 2ML VIAL IV PRN (16:00)
[2023-10-27] MEDS ORDERED: PERCOCET 5MG/325MG TAB PO SCH (16:15)
[2023-10-27] MEDS: HYDROMORPHONE HCL 0.5 MG/ 0.5 ML SYRINGE IV PRN ×2 (16:16→16:34)
[2023-10-27] MEDS ORDERED: PERC5TAB12 PO (16:19)
[2023-10-27] MEDS ORDERED: IBUP80TA PO (16:20)
[2023-10-27 17:22] VITALS: BP 121/77; TEMP 98.1; O2SAT 98
== END 2023-10-27 17:48 | disposition home or self-care (01) ==
LOC: M SDC 12:50
PROVIDERS: ATTEND Obstetrics & Gynecology
DX: N80.329 Endometriosis of the posterior cul-de-sac, unspecified depth (principal); N80.353 Endometriosis of bilateral pelvic sidewall, unspecified depth; N73.6 Female pelvic peritoneal adhesions (postinfective); R10.2 Pelvic and perineal pain; J45.909 Unspecified asthma, uncomplicated; K58.9 Irritable bowel syndrome, unspecified; K21.9 Gastro-esophageal reflux disease without esophagitis; Z79.899 Other long term (current) drug therapy; F17.290 Nicotine dependence, other tobacco product, uncomplicated; Z88.5 Allergy status to narcotic agent; Z79.51 Long term (current) use of inhaled steroids
CPT/HCPCS: 36415; 58662; 81025; 85027; 86850; 86900; 86901; 88305; J0665; J1100; J1170; J1885; J2250; J2405; J3010

== ENCOUNTER 2023-11-24 11:31 | Emergency (ER) | payer OTHER ==
[~2023-11-24] VITALS: Ht 165.1 cm; Wt 82.2 kg
[~2023-11-24 11:31] MED LIST changes: -LR 1,000 ML IV SCH; +PERC5TAB12 PO
[2023-11-24] MEDS ORDERED: NS 1,000 ML IV ONE (14:35)
[2023-11-24] MEDS ORDERED: KETOROLAC 30 MG/ML 1ML VIAL IV ONE (14:35)
[2023-11-24 15:50] LABS: BASO # 0.1 10^3/uL (0.0-0.2); BASO % 0.6 % (0.0-1.0); EOS % 9.6 % (0.0-3.0); HEMATOCRIT 42.2 % (36.0-47.0); HEMOGLOBIN 14.2 g/dl (12.0-15.5); LYMPH # 3.3 10^3/uL (1.5-5.0); LYMPH % 31.8 % (24.0-44.0); MEAN CORPUSCULAR HEMOGLOBIN 31.6 pg (27.0-33.0); MEAN CORPUSCULAR HGB CONC 33.6 g/dl (32.0-36.5); MONO # 0.6 10^3/uL (0.0-0.8); MONO % 5.9 % (2.0-8.0); NEUTROPHILS # 5.4 10^3/uL (1.5-8.5); NEUTROPHILS % 51.8 % (36.0-66.0); PLATELET COUNT, AUTOMATED 241 10^3/uL (150-450); RED BLOOD COUNT 4.49 10^6/uL (4.00-5.40); WHITE BLOOD COUNT 10.4 10^3/uL (4.0-10.0)
[2023-11-24 16:20] LABS: LIPASE 31 U/L (12-53)
[2023-11-24 16:22] LABS: ALBUMIN 4.2 G/DL (3.2-5.2); ALKALINE PHOSPHATASE 44 U/L (46-116); ALT/SGPT 14 U/L (7.0-40); AST/SGOT 14 U/L (<34); BILIRUBIN,DIRECT 0.2 MG/DL (<0.4); BILIRUBIN,TOTAL 0.7 MG/DL (0.3-1.2); BLOOD UREA NITROGEN 15 MG/DL (9-23); CALCIUM LEVEL 9.1 MG/DL (8.5-10.1); CARBON DIOXIDE LEVEL 22 MMOL/L (20-31); CHLORIDE LEVEL 108 MMOL/L (98-107); CREATININE FOR GFR 0.56 MG/DL (0.55-1.30); GLOMERULAR FILTRATION RATE > 60.0 (>60); GLUCOSE, FASTING 77 MG/DL (60-100); POTASSIUM SERUM 3.9 MMOL/L (3.5-5.1); SODIUM LEVEL 140 MMOL/L (136-145); TOTAL PROTEIN 7.4 G/DL (5.7-8.2)
[2023-11-24] MEDS ORDERED: ISOVUE-370 76% 100ML VIAL As Ordered ONE (16:30)
[2023-11-24 17:36] VITALS: BP 125/82; TEMP 97.8; O2SAT 99
== END 2023-11-24 17:43 | disposition home or self-care (01) ==
LOC: M ED 11:31
DX: N83.291 Other ovarian cyst, right side (principal); G43.909 Migraine, unspecified, not intractable, without status migrainosus; K58.9 Irritable bowel syndrome, unspecified; F17.200 Nicotine dependence, unspecified, uncomplicated; F12.10 Cannabis abuse, uncomplicated; F10.10 Alcohol abuse, uncomplicated; Z88.5 Allergy status to narcotic agent; Z91.048 Other nonmedicinal substance allergy status; Z79.52 Long term (current) use of systemic steroids; Z79.899 Other long term (current) drug therapy
CPT/HCPCS: 74177; 76830; 76856; 80048; 80076; 81001; 83690; 84702; 85025; 93976; 96361; 96374; 99284; J1885; Q9967

== ENCOUNTER → 2023-12-29 | Outpatient (REF) | payer OTHER | LOC: M LAB REF 16:19 | PROVIDERS: ATTEND Physician Assistant Medical | DX: B34.9 Viral infection, unspecified (principal) ==

== ENCOUNTER → 2024-02-19 | Outpatient (CLI) | payer OTHER | LOC: M RAD 10:27 | PROVIDERS: ATTEND Physician Assistant Medical | DX: R06.02 Shortness of breath (principal) ==

== ENCOUNTER → 2024-03-26 | Outpatient (REF) | payer OTHER ==
[2024-03-26 21:26] LABS: Trichomonas vaginalis (AMP) NOT DETECTED (NEGATIVE)
[2024-03-26 21:51] LABS: GC DNA AMPLIFICATION NEGATIVE (NEGATIVE)
== END ==
LOC: M SFHCWAGY 17:10
PROVIDERS: ATTEND Obstetrics & Gynecology
DX: Z11.3 Encounter for screening for infections with a predominantly sexual mode of transmission (principal)

== ENCOUNTER → 2024-04-22 | Outpatient (CLI) | payer OTHER | LOC: M WHC 14:35 | PROVIDERS: ATTEND Obstetrics & Gynecology | DX: R10.2 Pelvic and perineal pain (principal) ==

== ENCOUNTER → 2024-05-30 | Outpatient (CLI) | payer OTHER ==
[2024-05-30 18:10] LABS: BASO # 0.2 10^3/uL (0.0-0.2); BASO % 1.2 % (0.0-1.0); EOS # 2.3 10^3/uL (0.0-0.5); EOS % 18.6 % (0.0-3.0); HEMATOCRIT 40.9 % (36.0-47.0); HEMOGLOBIN 13.7 g/dl (12.0-15.5); LYMPH # 3.3 10^3/uL (1.5-5.0); MEAN CORPUSCULAR HEMOGLOBIN 31.4 pg (27.0-33.0); MEAN CORPUSCULAR HGB CONC 33.5 g/dl (32.0-36.5); MEAN CORPUSCULAR VOLUME 93.6 fl (80.0-96.0); MONO # 0.7 10^3/uL (0.0-0.8); MONO % 5.4 % (2.0-8.0); NEUTROPHILS # 5.8 10^3/uL (1.5-8.5); NEUTROPHILS % 47.6 % (36.0-66.0); PLATELET COUNT, AUTOMATED 242 10^3/uL (150-450); RED BLOOD COUNT 4.37 10^6/uL (4.00-5.40); WHITE BLOOD COUNT 12.1 10^3/uL (4.0-10.0)
[2024-05-30 18:41] LABS: IMMUNOGLOBULIN A 129.8 MG/DL (40-350)
[2024-05-30 18:43] LABS: IMMUNOGLOBULIN G 924 MG/DL (650-1600)
[2024-05-30 18:44] LABS: IMMUNOGLOBULIN E 60.9 IU/ML (0-378)
== END ==
LOC: M PLALAB 14:35
PROVIDERS: ATTEND Allergy & Immunology Allergy
DX: J45.40 Moderate persistent asthma, uncomplicated (principal); D84.9 Immunodeficiency, unspecified

== ENCOUNTER → 2024-06-14 | Outpatient (CLI) | payer OTHER ==
[~2024-06-14] MED LIST changes: -HYOS0.1258 PO; +HYOS0.1289 PO
[2024-06-14 17:34] LABS: BASO # 0.2 10^3/uL (0.0-0.2); EOS # 5.6 10^3/uL (0.0-0.5); HEMATOCRIT 41.7 % (36.0-47.0); HEMOGLOBIN 13.9 g/dl (12.0-15.5); LYMPH # 3.5 10^3/uL (1.5-5.0); LYMPH % 22.1 % (24.0-44.0); MEAN CORPUSCULAR HEMOGLOBIN 31.4 pg (27.0-33.0); MEAN CORPUSCULAR HGB CONC 33.3 g/dl (32.0-36.5); MEAN CORPUSCULAR VOLUME 94.1 fl (80.0-96.0); MONO # 0.7 10^3/uL (0.0-0.8); MONO % 4.6 % (2.0-8.0); NEUTROPHILS # 5.7 10^3/uL (1.5-8.5); PLATELET COUNT, AUTOMATED 241 10^3/uL (150-450); RED BLOOD COUNT 4.43 10^6/uL (4.00-5.40); WHITE BLOOD COUNT 15.7 10^3/uL (4.0-10.0)
[2024-06-14 17:56] LABS: ALBUMIN 4.1 G/DL (3.2-5.2); ALKALINE PHOSPHATASE 53 U/L (46-116); ALT/SGPT 19 U/L (7.0-40); AST/SGOT 13 U/L (<34); BILIRUBIN,TOTAL 0.6 MG/DL (0.3-1.2); BLOOD UREA NITROGEN 10 MG/DL (9-23); CALCIUM LEVEL 9.2 MG/DL (8.5-10.1); CARBON DIOXIDE LEVEL 25 MMOL/L (20-31); CHLORIDE LEVEL 106 MMOL/L (98-107); CK-MB VALUE MASS < 1.0 NG/ML (<3.6); CPK CREATINE PHOSPHOKINASE 68 U/L (34-145); CREATININE FOR GFR 0.62 MG/DL (0.55-1.30); GLOMERULAR FILTRATION RATE > 60.0 (>60); GLUCOSE, FASTING 71 MG/DL (60-100); MB/CK RELATIVE INDEX 1.47 (< OR =4); POTASSIUM SERUM 3.8 MMOL/L (3.5-5.1); RHEUMATOID FACTOR QUANT 5.4 IU/ML (<14); SODIUM LEVEL 138 MMOL/L (136-145); TOTAL PROTEIN 7.1 G/DL (5.7-8.2)
[2024-06-14 17:58] LABS: VITAMIN B12 LEVEL 378 PG/ML (211-911)
[2024-06-14 18:19] LABS: EOS % 35.7 % (0.0-3.0)
[2024-06-14 18:28] LABS: HIV 1&2 SCREEN NEGATIVE (NEGATIVE)
[2024-06-17 14:41] LABS: ANA SCREEN, IFA NEGATIVE (NEGATIVE)
[2024-06-21 07:13] LABS: ANCA SCREEN Negative (Negative); STRONGYLOIDES SERUM ANTIBODIES NEGATIVE (NEGATIVE); TRICHINELLA ANTIBODY NEGATIVE (NEGATIVE); TRYPTASE 4.3 mcg/L (<11.0)
[2024-06-27 23:07] LABS: TOXOCARA CANIS AB IgG Negative (.)
== END ==
LOC: M RAD 14:58
PROVIDERS: ATTEND Allergy & Immunology Allergy
DX: J45.40 Moderate persistent asthma, uncomplicated (principal); D72.10 Eosinophilia, unspecified

== ENCOUNTER → 2024-06-19 | Outpatient (REF) | payer OTHER | LOC: M LAB REF 12:14 | PROVIDERS: ATTEND Physician Assistant | DX: J02.9 Acute pharyngitis, unspecified (principal) ==

== ENCOUNTER → 2024-06-26 | Outpatient (CLI) | payer OTHER | LOC: M PLAIMG 07:49 | PROVIDERS: ATTEND Allergy & Immunology Allergy | DX: J32.9 Chronic sinusitis, unspecified (principal) ==

== ENCOUNTER → 2024-08-02 | Outpatient (CLI) | payer OTHER | LOC: M PLALAB 15:24 | PROVIDERS: ATTEND Allergy & Immunology Allergy | DX: D84.9 Immunodeficiency, unspecified (principal) ==

== ENCOUNTER → 2024-09-08 | Outpatient (REF) | payer OTHER | LOC: M LAB REF 17:36 | PROVIDERS: ATTEND Physician Assistant | DX: B34.9 Viral infection, unspecified (principal) ==

== ENCOUNTER 2024-11-03 18:28 | Emergency (ER) | payer OTHER ==
[~2024-11-03] VITALS: Ht 165.1 cm; Wt 92.7 kg
[~2024-11-03 18:28] MED LIST changes: -HYOS0.1289 PO; +HYOS0.1297 PO
[2024-11-03 20:43] VITALS: BP 115/63; TEMP 97.3; O2SAT 96
[2024-11-03] MEDS: ACETAMINOPHEN 325 MG TAB PO ONE (20:45)
[2024-11-03] MEDS: BOOSTRIX VACCINE (TETANUS/DIPHTH/ACEL. PERTUSSIS) 0.5ML SYR IM.IMMUN ONE (20:46)
== END 2024-11-03 21:06 | disposition home or self-care (01) ==
LOC: M ED 18:28
DX: S61.303A Unspecified open wound of left middle finger with damage to nail, initial encounter (principal); W26.8XXA Contact with other sharp object(s), not elsewhere classified, initial encounter; Y92.009 Unspecified place in unspecified non-institutional (private) residence as the place of occurrence of the external cause; Y93.G3 Activity, cooking and baking; Y99.9 Unspecified external cause status; Z88.5 Allergy status to narcotic agent; Z91.048 Other nonmedicinal substance allergy status; Z23 Encounter for immunization; Z79.52 Long term (current) use of systemic steroids; Z79.899 Other long term (current) drug therapy; Z79.1 Long term (current) use of non-steroidal anti-inflammatories (NSAID)

== ENCOUNTER → 2024-11-21 | Outpatient (CLI) | payer OTHER ==
[2024-11-21 17:01] LABS: BASO # 0.1 10^3/uL (0.0-0.2); BASO % 0.9 % (0.0-1.0); EOS # 1.7 10^3/uL (0.0-0.5); EOS % 14.3 % (0.0-3.0); HEMATOCRIT 40.5 % (36.0-47.0); HEMOGLOBIN 13.7 g/dl (12.0-15.5); LYMPH % 25.9 % (24.0-44.0); MEAN CORPUSCULAR HGB CONC 33.8 g/dl (32.0-36.5); MEAN CORPUSCULAR VOLUME 91.6 fl (80.0-96.0); MONO # 0.7 10^3/uL (0.0-0.8); MONO % 6.2 % (2.0-8.0); NEUTROPHILS # 6.1 10^3/uL (1.5-8.5); NEUTROPHILS % 52.3 % (36.0-66.0); PLATELET COUNT, AUTOMATED 250 10^3/uL (150-450); RED BLOOD COUNT 4.42 10^6/uL (4.00-5.40); WHITE BLOOD COUNT 11.7 10^3/uL (4.0-10.0)
== END ==
LOC: M LAB 15:05
PROVIDERS: ATTEND Allergy & Immunology Allergy
DX: J45.40 Moderate persistent asthma, uncomplicated (principal); D72.10 Eosinophilia, unspecified

== ENCOUNTER → 2024-12-24 | Outpatient (CLI) | payer OTHER | LOC: M RAD 14:27 | PROVIDERS: ATTEND Obstetrics & Gynecology | DX: R10.2 Pelvic and perineal pain (principal); Z97.5 Presence of (intrauterine) contraceptive device ==

== ENCOUNTER → 2025-01-07 | Outpatient (REF) | payer OTHER | LOC: M SFHCWAGY 15:29 | PROVIDERS: ATTEND Obstetrics & Gynecology | DX: Z12.4 Encounter for screening for malignant neoplasm of cervix (principal) ==

== ENCOUNTER → 2025-07-15 | Outpatient (CLI) | payer OTHER | LOC: M WUC 11:42 | PROVIDERS: ATTEND Nurse Practitioner Adult Health | DX: R07.89 Other chest pain (principal) ==